=== PATIENT | female | born 1975 | race Two or more races ===

== ENCOUNTER 2023-07-27 10:11 | Outpatient (CLI) | payer BC, SELFPAY | END 2023-07-27 10:12 | disposition home or self-care (01) | PROVIDERS: PCP Family Medicine; Visit Provider Family Medicine | DX: R53.83 Other fatigue (principal); Z13.228 Encounter for screening for other metabolic disorders; Z13.29 Encounter for screening for other suspected endocrine disorder; Z13.0 Encounter for screening for diseases of the blood and blood-forming organs and certain disorders involving the immune mechanism | CPT/HCPCS: 80053; 84443; 85025; 86140 ==